=== PATIENT | female | born 1980 | race Caucasian/White ===

== ENCOUNTER 2019-09-14 19:37 | Emergency (ER) | payer MEDICAID, SELFPAY ==
[2019-09-14 19:51] VITALS: BP 130/70; PULSE 78; RESP 16; TEMP 36.6; O2SAT 98
--- NOTE | 2019-09-14 20:09 | DI.RAD_ITS ---
EXAM: XR FINGER LT MIDDLE INDICATION: pain. COMPARISON: No exams were available for comparison TECHNIQUE: 2D digital imaging was performed. FINDINGS: There is a posterior dislocation at the proximal interphalangeal joint of the left middle finger. No fracture is identified.
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
--- NOTE | 2019-09-14 20:43 | DI.VRAD_ITS ---
PROCEDURE INFORMATION: Exam: XR Left Finger(s) Exam date and time: 09/14/2019 8:19 PM Clinical history: 39 years old, female; Injury or trauma; Fall; Initial encounter; Dislocation; Severity not specified; Left; Middle finger TECHNIQUE: Imaging protocol: XR Left fingers. Views: Minimum 2 views. COMPARISON: No relevant prior studies available. FINDINGS: Bones/joints: Dorsal dislocation of the third middle phalanx with respect to proximal. No fracture demonstrated. Soft tissues: Normal. IMPRESSION: 1. Dorsal dislocation of third middle phalanx. 2. No fracture identified. Dictated and Authenticated by: Adam Faye MD. Ordering:RODDY Etienne MD
--- NOTE | 2019-09-14 20:52 | DI.RAD_ITS ---
EXAM: XR FINGER LT MIDDLE POST REDUC INDICATION: post reduction. COMPARISON: XR FINGER LT MIDDLE from 09/14/2019 TECHNIQUE: 2D digital imaging was performed. FINDINGS: A post reduction examination reveals interval reduction of dislocation. There is no demonstrated frac ture.
--- NOTE | 2019-09-14 21:39 | DI.VRAD_ITS ---
PROCEDURE INFORMATION: Exam: XR Left Finger(s) Exam date and time: 09/14/2019 9:14 PM Clinical history: 39 years old, female; Pain; Finger(s); Left; Additional info: Post reduction TECHNIQUE: Imaging protocol: XR Left fingers. Views: Minimum 2 views. COMPARISON: CR XR FINGER LT MIDDLE 09/14/2019 8:15 PM FINDINGS: Bones/joints: Interval reduction of dislocation of third middle phalanx with respect to proximal. No fracture demonstrated. Anatomic alignment is near normal. Soft tissues: Normal. IMPRESSION: 1. Interval reduction of dislocation with near normal anatomic positioning. 2. No fracture demonstrated. Dictated and Authenticated by: Adam Faye MD. Ordering:RODDY Etienne MD
== END 2019-09-14 21:50 | disposition home or self-care (01) ==
PROVIDERS: Emergency Provider Physician Assistant; PCP Family Medicine
DX: S63.293A Dislocation of distal interphalangeal joint of left middle finger, initial encounter (principal); V18.0XXA Pedal cycle driver injured in noncollision transport accident in nontraffic accident, initial encounter; Y93.55 Activity, bike riding
CPT/HCPCS: 26770; 73140

== ENCOUNTER 2020-01-21 01:25 | Outpatient (CLI) | payer MEDICAID, SELFPAY ==
--- NOTE | 2020-01-21 08:45 | DI.MRI_ITS ---
EXAM: MR LOWER JOINT RT WO CLINICAL HISTORY: RT KNEE PAIN, M25.561,RUPTURE OF ANTERIOR CRUCIATE LIGAMENT, S83.511A. TECHNIQUE: Multiplanar multisequence MRI was performed. COMPARISON: KNEE 1 OR 2 VIEWS from 01/29/2013 Right Knee from 02/03/2013 FINDINGS: There is a small joint effusion. There is some thickening and high signal within the anterior crucia te ligament could indicate a partial tear. The appearance appears not significantly changed from the previous exam. There is edema around the lateral collateral ligaments but no evidence of a focal te ar. The medial collateral ligament, posterior cruciate ligament and extensor mechanism are unremarka ble. There is high signal in the lateral tibial plateau which could indicate a bone contusion. Ther e is an area of linear high signal in the posterior horn of the medial meniscus. This appears unchan ged from the previous exam and could represent fluid directly posterior to the meniscus versus a radi al tear which appears unchanged. Lateral meniscus appears normal. No cartilage defects are seen. T here is a small synovial cyst versus ganglion posterior to the medial femoral condyle. IMPRESSION: Partial ACL tear versus mucoid degeneration. Lateral collateral ligament sprain. Bone contusion of the lateral tibial plateau. Stable appearance of the posterior horn of the medial meniscus. DATA REPOSITORY:
== END 2020-01-21 01:45 ==
PROVIDERS: PCP Family Medicine; Visit Provider Orthopaedic Surgery
DX: M25.561 Pain in right knee (principal); S83.511A Sprain of anterior cruciate ligament of right knee, initial encounter; S83.421A Sprain of lateral collateral ligament of right knee, initial encounter
CPT/HCPCS: 73721

== ENCOUNTER 2021-03-02 10:35 | Outpatient (REF) | payer MEDICAID, SELFPAY ==
--- NOTE | 2021-03-02 09:30 | PAPFT_PTH ---
PATIENT: Charlee Reyna LOC: [facility] U#:[id number] AGE/SX: 41/F ROOM: RE03/02/[address]: Nirali Sinha MD : 1980 BED: DIS: 03/02/2021 SPEC #: [id number] RECD: 03/02/21 13:02 STATUS: SAMANTHA REMarshal #: [id number] POLO: 03/02/21 09:[address]: Nirali Sinha DEPT: [facility] Cytology RECD BY: Monica Avalos Tissues: 1 - CX/ENDOCX FOR PAP SMEARS Procedures: PAP THIN PREP/UVM Screening HPV DNA PROBE Comments: [id number]
== END 2021-03-02 10:36 | disposition home or self-care (01) ==
LOC: LBN 10:35
PROVIDERS: PCP Family Medicine; Visit Provider Family Medicine
DX: Z12.4 Encounter for screening for malignant neoplasm of cervix (principal); Z11.51 Encounter for screening for human papillomavirus (HPV)
CPT/HCPCS: 88142; 87624

== ENCOUNTER 2022-01-09 19:10 | Outpatient (CLI) | payer MEDICAID, SELFPAY ==
--- NOTE | 2022-01-09 15:15 | DI.RAD_ITS ---
Exam(s) XR KNEE RT 3V AP,LAT,VIPUL EXAM: XR KNEE RT 3V AP,LAT,VIPUL CLINICAL HISTORY: pain, large effusion, internal derangement, S89.91XA, M23.91. TECHNIQUE: 2D digital imaging was performed. COMPARISON: CR KNEE 1 OR 2 VIEWS from 01/29/2013 FINDINGS: There is no evidence of fracture but there does appear to be a large joint effusion signifying international account representative al derangement. No osteochondral defects. IMPRESSION: No fractures. Prominent joint effusion. Appropriate follow-up recommended DATA REPOSITORY: RADIATION DOSE DELIVERED:
== END 2022-01-09 19:30 ==
PROVIDERS: PCP Family Medicine; Visit Provider Family Medicine
DX: M25.561 Pain in right knee (principal); M25.461 Effusion, right knee; S89.81XA Other specified injuries of right lower leg, initial encounter; M23.8X1 Other internal derangements of right knee
CPT/HCPCS: 73562

== ENCOUNTER 2022-01-20 02:48 | Outpatient (CLI) | payer MEDICAID, SELFPAY ==
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
== END 2022-01-20 03:08 ==
PROVIDERS: PCP Family Medicine; Visit Provider Family Medicine
DX: M25.561 Pain in right knee (principal); M25.461 Effusion, right knee; S83.511A Sprain of anterior cruciate ligament of right knee, initial encounter; S83.231A Complex tear of medial meniscus, current injury, right knee, initial encounter; S83.281A Other tear of lateral meniscus, current injury, right knee, initial encounter; S83.421A Sprain of lateral collateral ligament of right knee, initial encounter; M23.8X1 Other internal derangements of right knee; Y93.23 Activity, snow (alpine) (downhill) skiing, snowboarding, sledding, tobogganing and snow tubing
CPT/HCPCS: 73721

== ENCOUNTER 2022-06-26 03:49 | Outpatient (CLI) | payer MEDICAID, SELFPAY ==
[2022-06-26 12:45] LABS: Anion Gap 7.9 mmol/L (3-11); BUN 14 mg/dL (7-18); CO2 25.1 mmol/L (21.0-32.0); CREATININE 0.8 mg/dL (0.55-1.02); Calcium 9.1 mg/dL (8.5-10.1); Calculated LDL 82 mg/dL (<100); Chloride 105 mmol/L (98-107); Cholesterol 210 mg/dL (<200); Glucose 81 mg/dL (74-106); HDL Cholesterol 117 mg/dL (40-60); Potassium 4.1 mmol/L (3.5-5.1); Sodium 138 mmol/L (136-145); Triglyceride 58 mg/dL (<150)
[2022-06-27 10:59] LABS: Hepatitis C Ab w Rflx HCV PCR Negative (Negative)
[2022-06-27 11:06] LABS: HIV-1/2 Ag & Ab Screen Negative (Negative)
== END 2022-06-26 03:50 | disposition home or self-care (01) ==
LOC: LOS 03:49
PROVIDERS: PCP Family Medicine; Visit Provider Family Medicine
DX: Z00.00 Encounter for general adult medical examination without abnormal findings (principal); Z11.4 Encounter for screening for human immunodeficiency virus [HIV]; Z11.59 Encounter for screening for other viral diseases; E66.9 Obesity, unspecified
CPT/HCPCS: 36415; 80048; 80061; 86803; 87389

== ENCOUNTER 2023-10-08 13:09 | Outpatient (CLI) | payer OTHER, SELFPAY ==
--- NOTE | 2023-10-08 10:45 | DI.RAD_ITS ---
Exam(s) XR HAND RT COMPLETE EXAM: XR HAND RT COMPLETE CLINICAL HISTORY: RIGHT HAND INJURY. TECHNIQUE: 2D digital imaging was performed. COMPARISON: No exams were available for comparison FINDINGS: No evidence of acute fracture or dislocation nor abnormal soft tissue densities. No osseous lesions. No radiopaque foreign body. No erosions IMPRESSION: Acute osseous findings in the hand. DATA REPOSITORY: RADIATION DOSE DELIVERED:
== END 2023-10-08 13:10 | disposition home or self-care (01) ==
LOC: DIORS 13:10
PROVIDERS: PCP Family Medicine; Visit Provider Physician Assistant
DX: M86.141 Other acute osteomyelitis, right hand (principal); S69.91XA Unspecified injury of right wrist, hand and finger(s), initial encounter; X58.XXXA Exposure to other specified factors, initial encounter
CPT/HCPCS: 73130

== ENCOUNTER 2024-05-02 12:09 | Day surgery (SDC) | payer OTHER, SELFPAY ==
[2024-05-02 12:25] VITALS: BP 120/85; PULSE 73; RESP 18; TEMP 36.4; O2SAT 98
[2024-05-02] MEDS: Lactated Ringers 1,000 ML 80 ML IV (12:56)
[2024-05-02 14:08] VITALS: BMI 31.1
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
[2024-05-02 14:58] VITALS: BP 119/83; PULSE 68; RESP 16; TEMP 36.5; O2SAT 98
--- NOTE | 2024-05-02 15:05 | W.ANESPOSTOP ---
Postoperative Evaluation Date, Time and Location Date Performed: 05/02/24 Time Performed: 15:02 Patient Location: Day Surgery Unit Vital Signs Most Recent Imported Vital Signs: Most Recent Vital Signs Temp Pulse Resp BP Pulse Ox 36.5 C 68 16 119/83 98 05/02/24 14:58 05/02/24 14:58 05/02/24 14:58 05/02/24 14:58 05/02/24 14:58 Pain Score Most Recent Pain Score: Most Recent Pain Score Pain Level 0 05/02/24 14:58 Assessment Mental Status: Awake (Alert & Oriented to Patient Baseline) Airway and Respiratory Function: Patent airway with normal (patient baseline) respiratory exam Cardiovascular Function: Hemodynamically Stable Hydration Status: Adequately Hydrated Nausea & Vomiting: No Nausea or Vomiting Pain: Pt. Denies Any Pain Peripheral Nerve Block: Patient did not receive a nerve block
--- NOTE | 2024-05-02 15:09 | COLE_ITS ---
Date of service: 05/02/24 Time of Service: 15:09 Colonoscopy Report Date of procedure: 05/02/24 Pre-op diagnosis general: Colon cancer screening Post-op diagnosis procedure note: other (Internal and external hemorrhoid) Anesthesia Type: General:No Airway Estimated blood loss (mL): 0 Pathology: none sent Complications: None Disposition: same day Prep: Miralax/Dulcolax Retraction Time: 10 Procedure Description: After informed consent was obtained the patient was taken to the procedure room and placed in a left decubitous position. Monitors were applied and a time out was done. The patients name, date of , procedure, allergies to medications and metal in their body was reviewed. The patient was then sedated. Once sedated and comfortable a rectal exam was done. Mild external hemorrhoids. Internal exam revealed a normal sphincter tone and no palpable masses. The scope was then introduced and retrofelexed. Grade 2 internal hemorrhoids x 1 column were identified. The scope was then advanced to the cecum without difficulty. The TI and appendiceal orifice were identified. The scope was then slowly retracted over 10 minutes back into the rectum. There are no polyp/AVM/diverticula visualized. The scope was removed and the patient was woken up and taken back to Same day surgery in stable condition. The patient tolerated the procedure well and there were no immediate complications. Follow up: The patient should follow up in 10 years unless they develop changes in bowel habits or other new gastrointestinal complaints. [place] Bowel Prep [place] Bowel Prep Right Colon: 3 Left Colon: 3 Transverse Colon: 3 Total Score: 9
[2024-05-02 15:12] VITALS: BP 115/78; PULSE 62; RESP 16; TEMP 36.6; O2SAT 98
--- NOTE | 2024-05-02 15:13 | PDOC.DSDIS_ITS ---
Date of service: 05/02/24 Time of Service: 15:14 Discharge Plan Disposition Patient Disposition: Home Condition: Good Discharge Details Reason For Visit: Colonoscopy Attending Provider: Kimberli Chapman Primary Care Provider: Marie Myrick Home Meds and New Rx's Prescriptions: Continued ibuprofen 200 mg Capsule 600 mg PO PRN PRN Discontinued bisacodyl [Dulcolax (bisacodyl)] 5 mg tablet,delayed release (DR/EC) 5 mg PO ONCE Qty: 4 0RF Rx Instructions: Colonoscopy Bowel Prep- Per Instructions polyethylene glycol 3350 17 gram/dose powder 238 g PO ONCE Qty: 238 0RF Rx Instructions: Colonoscopy Bowel Prep- Per Instructions Discharge Instructions Additional Instructions: [facility] Colonoscopy Post- Op Instructions Instructions for Everyone who is given Anesthesia: For your safety, please do the following for the next twenty-four (24) hours: *Do Not operate a motor vehicle (car, truck, motorcycle, etc.) *Do Not drink alcoholic beverages or use any recreational drugs for the first 24 hours or while taking pain medications. The medications in your body may have a reaction that can be dangerous. *Do Not make any important decisions or sign any important papers. Findings: Small internal and external hemorrhoids-make sure you are moving your bowels on a regular basis and not straining to go to the bathroom. If you find you are having problems with constipation or straining, then it is recommended you start a daily fiber supplement such as Metamucil. Follow up: Repeat colonoscopy in 10 years time. Of course, you should continue to have a yearly physical exam including a rectal exam. If you should ever notice any pain or difficulty having a bowel movement, blood in the stool, unexplained weight loss, or change in your bowel habits, please contact your health provider 1. No lifting over 20 pounds or strenuous activity for the first 24 hours after your procedure. After 24 hours there are no restrictions on your activity but you may feel fatigued for a few days. 2. After you arrive home you may have a light meal and return to your normal diet as you can tolerate it without feeling sick to your stomach. 3. You may have a bloated, gaseous feeling in your belly (abdomen) after a colonoscopy. Passing gas and belching will help. Walking or lying down on your left side with your knees flexed may relieve the discomfort. Call the office at [phone] (Office) or [phone] (Hospital) right away if you notice any of the following: a.Vomiting of blood or ?coffee ground stools?. b.Rectal bleeding 1Tbsp, blood clots or continuous bleeding. c.Severe belly (abdominal) pain. d.A hard distended belly (abdomen) and an inability to pass gas. 4. Please don?t expect to have a normal BM (bowel movement) for 2-3 days after your procedure. 5. If there are questions regarding the findings of your procedure, please contact your doctor 6. If you are unable to contact your doctor with a problem, contact the hospital at [phone]. 7. Continue all your regular medications unless directed otherwise. I understand the above instructions and have no questions. Signature of Patient or Adult Escort Name of Responsible Adult Escort Signature of Nurse Date/Time Stand Alone Forms: Anesthesia Discharge Inst., Colonoscopy Post Instructions, Rosy Mcnamara ([facility]) Activity:: See above Diet:: See above DS: Diagnosis Discharge Diagnosis (1) External hemorrhoid: Status: Acute (2) Internal hemorrhoids without complication: Status: Acute (3) Obesity without serious comorbidity: Status: Acute
== END 2024-05-02 16:02 | disposition home or self-care (01) ==
PROVIDERS: PCP Family Medicine; Visit Provider Surgery
PROC: 0DJD8ZZ Inspection of Lower Intestinal Tract, Via Natural or Artificial Opening Endoscopic (ICD-10-PCS; CPT 45378; principal; 2024-05-02 11:30)
DX: Z12.11 Encounter for screening for malignant neoplasm of colon (principal); K64.1 Second degree hemorrhoids; K64.8 Other hemorrhoids; K64.4 Residual hemorrhoidal skin tags
CPT/HCPCS: 45378; 81025; J2001; J2704; J3010

== ENCOUNTER 2025-04-17 01:03 | Outpatient (CLI) | payer OTHER, SELFPAY ==
--- NOTE | 2025-04-17 08:30 | DI.MAMMO_ITS ---
Exam(s) MAMMO SCREENING EXAM: MAMMO SCREENING CLINICAL HISTORY: screening,Z12.39 TECHNIQUE: Mammograms were interpreted according to the usual protocol including computer analysis w TV Pix[employer] CAD system, tomosynthesis and C-view imaging. COMPARISON: None. Baseline examination. FINDINGS: The breasts are composed of heterogeneously dense fibroglandular densities, Breast Density category C . No suspicious masses or suspicious microcalcifications are seen in the right breast. No skin thickening or abnormal axillary lymph nodes are seen in either breast. The lateral right breast on the CC view, there is a 13 millimeter area of circumscribed nodularity 9 cm from the nipple. On the MLO view there is a 13 millimeter nodule seen in the posterior tissue sup eriorly 11 centimeters from the nipple. There is an additional more superior nodule which may repres ent a lymph node. Spot compression views and ultrasound are requested for further evaluation. IMPRESSION: Right breast: BI-RADS Category 0 - Incomplete: Need additional imaging evaluation The left breast: Yearly screening mammography is recommended. Breast Density Category C, heterogeneously Dense. Breast density Category C or D implies that the patient has dense breast tissue. Dense breast tissue can make it harder to find cancer on a mammogram. Dense breast tissue is also associated with an incr eased risk of breast cancer. This information about the result of the mammogram report was provided to the patient to raise their awareness. Use this report when you speak with the patient about their risks for breast cancer, which includes their family history. At that time, you may recommend additional screening tests (Ultrasoun d or MRI) as these tests may add significant information. A negative radiographic report should not delay biopsy if a dominant or clinically suspicious mass is present. Up to ten percent of cancers are not identified on mammography. A negative report may reinforce clinical impression. Adenosis and dense breasts may obscure an underlying neoplasm. False positive reports average 6 to 10%.
== END 2025-04-17 01:23 ==
LOC: DI 01:03
PROVIDERS: PCP Family Medicine; Visit Provider Family Medicine
DX: Z12.31 Encounter for screening mammogram for malignant neoplasm of breast (principal); R92.333 Mammographic heterogeneous density, bilateral breasts
CPT/HCPCS: 77063; 77067

== ENCOUNTER 2025-04-23 02:46 | Outpatient (CLI) | payer OTHER, SELFPAY ==
--- NOTE | 2025-04-23 | DI.MAMMO_ITS ---
Exam(s) MAMMO SCREEN CALL BACK UNI EXAM: MAMMO SCREEN CALL BACK UNI RIGHT AND COMPLETE RIGHT BREAST ULTRASOUND CLINICAL HISTORY: F/U [facility] MAMMO, LATERAL RT BREAST CIRCUMSCRIBED NODULARITY, R92.8. TECHNIQUE: Unilateral RIGHT BREAST spot mammographic images obtained with 3D tomosynthesisand utiliz ing computer aided detection (CAD). . Complete RIGHT breast Ultrasound was also performed, including all 4 quadrants, the retroareolar amy on, and the ipsilateral axilla. COMPARISON: Prior mammograms were reviewed. This additional imaging was performed due to findings described on the recent baseline screening mammogram of 04/17/2025. FINDINGS: DIAGNOSTIC MAMMOGRAM: Additional mammographic spot compression views performed todayless impressive on the CC view. Howeve r, on the MLO spot view there are 2 adjacent nodular densities which appears slightly more prominent, these measuring 1.3 x 1.0 cm and 1.0 x 1.0 cm. COMPLETE RIGHT BREAST ULTRASOUND: Ultrasound performed today reveals no cysts nor obvious solid lesions in all 4 quadrants. However, a t the 10 o'clock position there is subtle asymmetric density which probably corresponds to the findin g on the mammogram. This exhibits neutral through transmission. Wider than taller.. Scanning of the right l axilla reveals no significant adenopathy. IMPRESSION: 1. Subtle findings the upper outer quadrant of the right breast which are somewhat equivocal. There are unfortunately no prior mammograms for comparison, with the 04/17/2025 having been her baseline ( at age 45). 2. Recommend repeat right breast mammogram and ultrasound in 3 months to ensure stability of these f indings in the upper outer quadrant of the right breast The patient was informed of these findings and recommendations prior to leaving the department today. I had originally informed her that follow-up would be in 6 months but I feel it would be more prude nt to perform repeat imaging of the right breast in 3 months. BI-RADS Category 3 - 3 month - Probably Benign Finding: Recommend follow-up mammography and ultrasoun d in 3 months Breast Density - Category C - The breast are heterogeneously dense, which may obscure small masses. Breast density Category C or D implies that the patient has dense breast tissue. Dense breast tissue can make it harder to find cancer on a mammogram. Dense breast tissue is also associated with an incr eased risk of breast cancer. This information about the result of the mammogram report was provided to the patient to raise their awareness. Use this report when you speak with the patient about their risks for breast cancer, which includes their family history. At that time, you may recommend additional screening tests (Ultrasoun d or MRI) as these tests may add significant information. A negative radiographic report should not delay biopsy if a dominant or clinically suspicious mass is present. Up to ten percent of cancers are not identified on mammography. A negative report may reinforce clinical impression. Adenosis and dense breasts may obscure an underlying neoplasm. False positive reports average 6 to 10%. Patient will receive a letter notifying them of these results.
--- NOTE | 2025-04-23 15:00 | DI.US_ITS ---
Exam(s) US BREAST RT COMPLETE EXAM: US BREAST RT COMPLETE CLINICAL HISTORY: F/U [facility] MAMMO/SPOTS, LATERAL RT BREAST CIRCUMSCRIBED NODULARITY, R92.8. TECHNIQUE: Complete ultrasound of the breast was performed including all 4 quadrants, the retroareo lar region, and the ipsilateral axilla. COMPARISON: Prior mammograms were reviewed. FINDINGS: SEE COMBINED REPORT IMPRESSION: SEE COMBINED REPORT Breast density Category C or D implies that the patient has dense breast tissue. Dense breast tissue can make it harder to find cancer on a mammogram. Dense breast tissue is also associated with an incr eased risk of breast cancer. This information about the result of the mammogram report was provided to the patient to raise their awareness. Use this report when you speak with the patient about their risks for breast cancer, which includes their family history. At that time, you may recommend additional screening tests (Ultrasoun d or MRI) as these tests may add significant information. A negative radiographic report should not delay biopsy if a dominant or clinically suspicious mass is present. Up to ten percent of cancers are not identified on mammography. A negative report may reinforce clinical impression. Adenosis and dense breasts may obscure an underlying neoplasm. False positive reports average 6 to 10%. Patient will receive a letter notifying them of these results.
== END 2025-04-23 03:06 ==
LOC: DI 02:46
PROVIDERS: PCP Family Medicine; Visit Provider Family Medicine
DX: Z12.31 Encounter for screening mammogram for malignant neoplasm of breast (principal); R92.8 Other abnormal and inconclusive findings on diagnostic imaging of breast; R92.333 Mammographic heterogeneous density, bilateral breasts
CPT/HCPCS: 76642; 77063; 77067

== ENCOUNTER 2025-07-24 00:32 | Outpatient (CLI) | payer OTHER, SELFPAY ==
--- NOTE | 2025-07-24 06:52 | DI.US_ITS ---
Exam(s) MG MAMMO DIAGNOSTIC UNI US BREAST RT COMPLETE EXAM: MG MAMMO DIAGNOSTIC UNI-RIGHT COMPLETE RIGHT BREAST ULTRASOUND CLINICAL HISTORY: F/u [facility] mammo 03/2025,R92.8,RUOQ FINDINGS. TECHNIQUE: Unilateral RIGHT BREAST CC AND MLO WELL ADDITIONAL spot mammographic images were obtained with 3D tomosynthesis technique and utilizing computer aided detection (CAD). COMPLETE RIGHT BREAST ULTRASOUND performed, including all 4 quadrants as well as the axillary region. COMPARISON: Prior recent baseline mammogram was reviewed, as was the ultrasound performed at that time. FINDINGS: DIAGNOSTIC RIGHT BREAST MAMMOGRAM: Previously described findings remain mammographically stable. No new spiculated masses. No malignant-appearing microcalcification groups COMPLETE RIGHT BREAST ULTRASOUND: At the 9 o'clock position there is a 4 millimeter benign microcyst. At the 10 o'clock position there is a benign septated 4 millimeter microcyst. Previously described other benign finding at the 10 o'clock position of the right breast is less evident on today's ultrasound. IMPRESSION: No radiographic evidence of malignancy Benign right breast ultrasound findings as described above. Appropriate follow-up is to keep this patient on a yearly mammogram schedule, this implying that her next bilateral mammogram would be in March 2026, with earlier imaging if a self detected breast change is noted.. The patient was informed of the findings and follow-up recommendations by myself prior to leaving the department today. BI-RADS Category 2 - Benign Findings Breast Density - Category C - The breast are heterogeneously dense, which may obscure small masses. Breast density Category C or D implies that the patient has dense breast tissue. Dense breast tissue can make it harder to find cancer on a mammogram. Dense breast tissue is also associated with an increased risk of breast cancer. This information about the result of the mammogram report was provided to the patient to raise their awareness. Use this report when you speak with the patient about their risks for breast cancer, which includes their family history. At that time, you may recommend additional screening tests (Ultrasound or MRI) as these tests may add significant information. A negative radiographic report should not delay biopsy if a dominant or clinically suspicious mass is present. Up to ten percent of cancers are not identified on mammography. A negative report may reinforce clinical impression. Adenosis and dense breasts may obscure an underlying neoplasm. False positive reports average 6 to 10%. Patient will receive a letter notifying them of these results.
== END 2025-07-24 00:52 ==
LOC: DI 00:32
PROVIDERS: PCP Family Medicine; Visit Provider Family Medicine
DX: Z12.31 Encounter for screening mammogram for malignant neoplasm of breast (principal); N63.15 Unspecified lump in the right breast, overlapping quadrants
CPT/HCPCS: 76642; 77061; 77065; G0279